=== PATIENT | female | born 1960 ===

== ENCOUNTER 2024-11-11 10:23 | Day surgery (SDC) | payer OTHER ==
[2024-11-04 10:11] LABS: HEMATOCRIT 42.3 % (36.0-45.00); HEMOGLOBIN 13.9 g/dL (12.0-15.00); MEAN CELL VOLUME 84.7 fL (80.00-100.00); MEAN CORPUSCULAR HEMOGLOBIN 27.8 pg (27.00-32.0); MEAN CORPUSCULAR HGB CONC 32.8 g/dl (32.0-36.0); PLATELET COUNT 329 K/uL (150-450); RED BLOOD COUNT 4.99 M/uL (4.00-6.00); RED CELL DISTRIBUTION WIDTH 14.9 % (11.5-14.5)
[2024-11-04 10:13] LABS: URINE APPEARANCE Cloudy; URINE BILIRRUBIN Negative (NEGATIVE); URINE BLOOD Small; URINE COLOR Yellow; URINE GLUCOSE Negative (NEGATIVE); URINE KETONE Negative (NEGATIVE); URINE LEUKOCYTE Large; URINE NITRATE Negative; URINE PROTEIN Negative (NEGATIVE); URINE UROBILINOGEN 0.2 E.U./dl
[2024-11-04 10:14] LABS: URINE EPITHELIAL CELLS 99.8 uL (0.0-38.8); URINE RBC 14.8 uL (0.0-20.8); URINE WBC 601.2 uL (0.0-23.2)
[2024-11-04 10:18] LABS: URINE CAST 0.44 uL (0.0-1.40)
[2024-11-04 10:22] VITALS: BP 114/76
[2024-11-04 10:27] LABS: INR 0.98; PARTIAL THROMBOPLASTIN TIME 28.1 SECONDS (22.0-34.0); PROTHROMBIN TIME 10.7 SECONDS (9.0-11.5)
[2024-11-04 11:09] LABS: ALBUMIN 3.7 gm/dL (3.4-5.0); BILIRUBIN TOTAL 0.94 mg/dL (0.3-1.2); CALCIUM 9.6 mg/dL (8.5-10.1); CREATININE SERUM 0.65 mg/dL (0.55-1.02); GFR 92.36; GLOBULINA 3.4 G/DL (2.4-3.5); POTASSIUM 4.03 mEq/L (3.5-5.1); TOTAL PROTEIN 7.1 gm/dL (6.4-8.2)
[~2024-11-11] VITALS: Ht 170.2 cm; Wt 93.4 kg
[~2024-11-11 10:23] MED LIST: ADULT ASPIRIN81 MG; BISOPROL; FENOFIBRATE; METFORMIN; ROSUVASTATIN
[2024-11-11] MEDS ORDERED: POVIDONE-IODINE 118 ML BOTT TOP ONE (15:02)
[2024-11-11] MEDS ORDERED: MORPHINE SULFATE 4 MG/ML VIAL IV ONE ×2 (18:50→19:50)
[2024-11-11] MEDS ORDERED: RINGERS SOLUTION,LACTATED 1,000 ML IV SCH (19:15)
== END 2024-11-11 20:50 | disposition home or self-care (01) ==
LOC: CIR.AMB 10:23
PROVIDERS: ATTEND Obstetrics & Gynecology
DX: N84.0 Polyp of corpus uteri (principal); N95.0 Postmenopausal bleeding; N85.2 Hypertrophy of uterus; I10 Essential (primary) hypertension; E11.9 Type 2 diabetes mellitus without complications